=== PATIENT | male | born 1960 ===

== ENCOUNTER 2024-02-14 13:15 | Inpatient (IN) | payer MEDICAID ==
[~2024-02-14] VITALS: Ht 172.7 cm; Wt 81.0 kg
[2024-02-14] MEDS ORDERED: METOCLOPRAMIDE HCL 10 MG/2 ML VIAL ONE (13:44)
[2024-02-14] MEDS ORDERED: HYDROMORPHONE 1 MG/1 ML DISP.SYRIN ONE ×2 (13:45→18:08)
[2024-02-14 13:51] LABS: BASOPHILS # (AUTO) 0.1 K/UL (0.0-0.2); BASOPHILS % (AUTO) 0.9 % (0.0-2.0); EOSINOPHILS # (AUTO) 0.1 K/uL (0.0-0.7); EOSINOPHILS % (AUTO) 1.6 % (0.0-7.0); HEMATOCRIT 47.9 % (36.7-47.1); HEMOGLOBIN 16.3 g/dL (12.5-16.3); LYMPHOCYTES # (AUTO) 1.9 K/uL (0.8-4.8); LYMPHOCYTES % (AUTO) 23.6 % (20.5-51.5); MEAN CORPUSCULAR HEMOGLOBIN 33.8 uug (23.8-33.4); MEAN CORPUSCULAR HGB CONC 34 g/dL (32.5-36.3); MEAN CORPUSCULAR VOLUME 99.2 fL (73.0-96.2); MONOCYTES # (AUTO) 0.7 K/uL (0.1-1.30); MONOCYTES % (AUTO) 8.2 % (0.0-11.0); NEUTROPHILS # (AUTO) 5.3 K/uL (1.8-8.9); NEUTROPHILS % (AUTO) 65.7 % (38.5-71.5); PLATELET COUNT (AUTO) 143 K/uL (152-348); RED BLOOD CELL COUNT(AUTO) 4.83 MIL/uL (4.06-5.63); RED CELL DISTRIBUTION WIDTH 13.8 % (12.1-16.2); WHITE BLOOD COUNT (AUTO) 8.1 K/uL (3.6-10.2)
[2024-02-14] MEDS: METOCLOPRAMIDE HCL 10 MG/2 ML VIAL IV ONE (13:54)
[2024-02-14] MEDS: HYDROMORPHONE 1 MG/1 ML DISP.SYRIN IV ONE ×2 (13:54→18:14)
[2024-02-14 14:02] LABS: DIFFERENTIAL COMMENT 1
[2024-02-14 14:03] LABS: CALCIUM 9.5 mg/dL (8.5-10.1); CARBON DIOXIDE 27 mmol/L (21-32); CHLORIDE 102 mmol/L (98-107); GLUCOSE 139 mg/dL (74-106); POTASSIUM 4.2 mmol/L (3.5-5.1); SODIUM SERUM 139 mmol/L (136-145); UREA NITROGEN, BLOOD 11 mg/dL (7-18)
[2024-02-14 14:11] LABS: ALANINE AMINOTRANSFERASE 221 U/L (16-63); ALKALINE PHOSPHATASE 125 U/L (50-136); ASPARTATE AMINOTRANSFERASE 132 U/L (15-37); BILIRUBIN,DIRECT 0.4 mg/dL (0.0-0.2); BILIRUBIN,TOTAL 1.3 mg/dL (0.2-1.0); TOTAL PROTEIN, SERUM 8.3 g/dL (6.4-8.2)
[2024-02-14 14:29] LABS: *BILIRUBIN,URIN 1+ (NEGATIVE); *BLOOD, URINE 3+ (NEGATIVE); *COLOR,URINE DARK YELLOW (YELLOW); *KETONES,URINE NEGATIVE (NEGATIVE); *PROTEIN,URINE 1+ (NEGATIVE); LEUKOCYTE ESTERASE ,URINE NEGATIVE (NEGATIVE); NITRITE, URINE NEGATIVE (NEGATIVE); PH,URINE 5.5 (5.0-8.0); UGLUCOSE NEGATIVE (NEGATIVE)
[2024-02-14 14:45] LABS: *CLARITY,URINE HAZY (CLEAR)
[2024-02-14] MEDS ORDERED: KETOROLAC TROMETHAMINE 15 MG INJ ONE (14:54)
[2024-02-14] MEDS: KETOROLAC TROMETHAMINE 15 MG INJ IVP ONE (14:59)
[2024-02-14 15:18] LABS: RBC,URINE TNTC /HPF (0-3); WBC,URINE 0-3 /HPF (0-3)
[2024-02-14 15:20] LABS: BACTERIA,URINE FEW /HPF (NONE SEEN); SQUAMOUS EPITHELIAL CELL,UR FEW /HPF (NONE SEEN)
[2024-02-14 15:21] LABS: CALCIUM OXALATE CRYSTALS,UR RARE /HPF (NONE SEEN)
[2024-02-14 15:55] LABS: LIPASE 72 U/L (16-77)
[2024-02-14] MEDS ORDERED: ONDANSETRON 4 MG/2 ML VIAL IV PRN (16:30)
[2024-02-14] MEDS ORDERED: hydrALAZINE HCL 20 MG/1 ML VIAL IV PRN (16:30)
[2024-02-14] MEDS: IV NS 1000 ML 1,000 ML IV SCH (16:44)
[2024-02-14] MEDS: DOCUSATE SODIUM 100 MG CAPSULE PO SCH (17:13)
[2024-02-14] MEDS: HEPARIN SODIUM,PORCINE 5,000 UNITS/ML VIAL SQ SCH (17:14)
[2024-02-14 21:07] VITALS: BP 129/74; TEMP 99.4; O2SAT 94
[2024-02-14] MEDS: ACETAMINOPHEN 325 MG TABLET PO PRN (21:38)
[2024-02-15 05:26] VITALS: BP 114/63; TEMP 98; O2SAT 92
[2024-02-15] MEDS: MORPHINE SULFATE 2 MG/1 ML DISP.SYRIN IVP PRN (06:13)
[2024-02-15 07:00] LABS: ALBUMIN 3.3 g/dL (3.4-5.0); BILIRUBIN,TOTAL 1.3 mg/dL (0.2-1.0); CALCIUM 8.9 mg/dL (8.5-10.1); CREATININE 1.1 mg/dL (0.6-1.3); PHOSPHOROUS 3.3 mg/dL (2.5-4.9)
[2024-02-15 07:05] LABS: POTASSIUM 4.1 mmol/L (3.5-5.1)
[2024-02-15 07:06] LABS: BASOPHILS # (AUTO) 0.1 K/UL (0.0-0.2); BASOPHILS % (AUTO) 0.8 % (0.0-2.0); EOSINOPHILS # (AUTO) 0.2 K/uL (0.0-0.7); HEMOGLOBIN 14.9 g/dL (12.5-16.3); LYMPHOCYTES # (AUTO) 2.5 K/uL (0.8-4.8); LYMPHOCYTES % (AUTO) 23.4 % (20.5-51.5); MEAN CORPUSCULAR HEMOGLOBIN 34.3 uug (23.8-33.4); MEAN CORPUSCULAR HGB CONC 35 g/dL (32.5-36.3); MEAN CORPUSCULAR VOLUME 98.6 fL (73.0-96.2); MONOCYTES # (AUTO) 1.2 K/uL (0.1-1.30); MONOCYTES % (AUTO) 11.4 % (0.0-11.0); NEUTROPHILS # (AUTO) 6.6 K/uL (1.8-8.9); NEUTROPHILS % (AUTO) 62.4 % (38.5-71.5); PLATELET COUNT (AUTO) 127 K/uL (152-348); RED BLOOD CELL COUNT(AUTO) 4.36 MIL/uL (4.06-5.63); RED CELL DISTRIBUTION WIDTH 13.6 % (12.1-16.2); WHITE BLOOD COUNT (AUTO) 10.5 K/uL (3.6-10.2)
[2024-02-15] MEDS: TAMSULOSIN HCL 0.4 MG CAP.SR.24H PO SCH (09:07)
[2024-02-15 11:52] VITALS: BP 106/72; TEMP 97.8; O2SAT 97
[2024-02-15] MEDS: KETOROLAC TROMETHAMINE 30 MG INJ IVP SCH (13:32)
[2024-02-15 16:24] VITALS: BP 107/60; TEMP 98; O2SAT 94
[2024-02-15] MEDS: DIAZEPAM 10 MG/2 ML DISP.SYRIN IV SCH (16:52)
[2024-02-15 19:00] VITALS: BP 101/57; TEMP 97.9; O2SAT 98
[2024-02-16 07:13] LABS: ALBUMIN 2.9 g/dL (3.4-5.0); BILIRUBIN,TOTAL 1.3 mg/dL (0.2-1.0); CALCIUM 8.5 mg/dL (8.5-10.1); CREATININE 0.8 mg/dL (0.6-1.3); POTASSIUM 3.8 mmol/L (3.5-5.1); TOTAL PROTEIN, SERUM 6.3 g/dL (6.4-8.2)
[2024-02-16 07:26] LABS: BASOPHILS % (AUTO) 0.5 % (0.0-2.0); EOSINOPHILS # (AUTO) 0.3 K/uL (0.0-0.7); EOSINOPHILS % (AUTO) 4.2 % (0.0-7.0); HEMATOCRIT 39.8 % (36.7-47.1); HEMOGLOBIN 13.9 g/dL (12.5-16.3); LYMPHOCYTES % (AUTO) 30.1 % (20.5-51.5); MEAN CORPUSCULAR HEMOGLOBIN 34.6 uug (23.8-33.4); MEAN CORPUSCULAR HGB CONC 35 g/dL (32.5-36.3); MEAN CORPUSCULAR VOLUME 98.9 fL (73.0-96.2); MONOCYTES # (AUTO) 0.6 K/uL (0.1-1.30); NEUTROPHILS # (AUTO) 3.8 K/uL (1.8-8.9); NEUTROPHILS % (AUTO) 56.2 % (38.5-71.5); PLATELET COUNT (AUTO) 100 K/uL (152-348); RED BLOOD CELL COUNT(AUTO) 4.02 MIL/uL (4.06-5.63); RED CELL DISTRIBUTION WIDTH 13.6 % (12.1-16.2); WHITE BLOOD COUNT (AUTO) 6.7 K/uL (3.6-10.2)
[2024-02-16 08:00] VITALS: BP 120/60; TEMP 98.2; O2SAT 95
[2024-02-16 11:28] VITALS: BP 106/67; TEMP 97.9; O2SAT 96
[2024-02-16] MEDS ORDERED: KETO10TA2 PO (14:48)
[2024-02-16] MEDS ORDERED: HYDR-3972 PO (14:48)
[2024-02-16] MEDS ORDERED: TAMS-3 PO (14:48)
[2024-02-16] MEDS ORDERED: ONDA4TAB11 PO (14:48)
[2024-02-16 15:18] VITALS: BP 132/74; TEMP 98.2; O2SAT 96
== END 2024-02-16 15:45 | disposition home or self-care (01) | DRG 465 ==
LOC: ER 13:15 → MEDSURG3 20:00
PROVIDERS: ADMIT Internal Medicine; ATTEND Nurse Practitioner Family
DX: N13.2 Hydronephrosis with renal and ureteral calculous obstruction (principal); R16.0 Hepatomegaly, not elsewhere classified; D72.829 Elevated white blood cell count, unspecified; K80.20 Calculus of gallbladder without cholecystitis without obstruction; F17.210 Nicotine dependence, cigarettes, uncomplicated; R73.9 Hyperglycemia, unspecified; Z87.442 Personal history of urinary calculi; I25.10 Atherosclerotic heart disease of native coronary artery without angina pectoris; Z98.61 Coronary angioplasty status; I44.0 Atrioventricular block, first degree; I45.10 Unspecified right bundle-branch block; K57.30 Diverticulosis of large intestine without perforation or abscess without bleeding; N40.0 Benign prostatic hyperplasia without lower urinary tract symptoms; R31.9 Hematuria, unspecified; K43.9 Ventral hernia without obstruction or gangrene
CPT/HCPCS: 36415; 71045; 76700; 76770; 83690; 84100; 84484; 85025; 85730; A4606; A4663; G0378; J1171; J1644; J1885; J2270; J2765; J3360; J7040